=== PATIENT | female | born 2000 | race Caucasian/White ===

== ENCOUNTER 2024-12-11 19:19 | Emergency (ER) | payer BC ==
[~2024-12-11] VITALS: Ht 170.2 cm; Wt 51.0 kg
[2024-12-11 19:24] VITALS: TEMP 96.3
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
--- NOTE | 2024-12-11 20:16 | RADIOLOGY REPORT ---
CLINICAL INDICATION: dog bite to the right thumb TECHNIQUE: 4 views DI HAND, COMPLETE (3VW MIN) Comparison: None FINDINGS: Transverse nondisplaced fracture of the 1st proximal phalanx mid diaphysis. Associated soft tissue sw elling. No additional fracture or joint malalignment. IMPRESSION: 1. Nondisplaced extra-articular fracture of the right thumb proximal phalanx.
[2024-12-11] MEDS ORDERED: AMOX-117 PO (21:04)
[2024-12-11] MEDS: amox tr/potassium clavulanate 875/125mg TAB PO ONE (21:17)
[2024-12-11 21:18] VITALS: BP 121/77; PULSE 94; RESP 16; O2SAT 99
== END 2024-12-11 21:21 | disposition home or self-care (01) ==
LOC: ER 19:21
DX: S62.640A Nondisplaced fracture of proximal phalanx of right index finger, initial encounter for closed fracture (principal); S61.230A Puncture wound without foreign body of right index finger without damage to nail, initial encounter; W54.0XXA Bitten by dog, initial encounter; Y93.89 Activity, other specified; Y92.89 Other specified places as the place of occurrence of the external cause; Y99.8 Other external cause status
CPT/HCPCS: 29125; 73130; 99283